=== PATIENT | male | born 1945 | race Caucasian/White ===

== ENCOUNTER 2017-04-30 15:44 | Emergency (ER) | payer OTHER ==
[~2017-04-30] VITALS: Ht 165.1 cm; Wt 83.1 kg
[2017-04-30 15:47] VITALS: TEMP 36.8; Ht 165.1 cm; Wt 83.1 kg
--- NOTE | 2017-04-30 16:13 | EMERGENCY ROOM VISIT NOTE ---
History Report prepared by Ilana: Wesley Gutierres Under the Supervision of: Dr. He Galdamez M.D. First contact with patient: 15:52 Chief Complaint: HYPERTENSION Stated Complaint: ELEVATED BP, HEADACHE History of Present Illness The patient is a 72 year old male with a history of hypertension who presents to the Emergency Room with complaints of worsening hypertension over the past 2 months. [facility], which he was diagnosed with 10 to 15 years ago. The patient says that he most recently had his medication changed 2 months ago, as he was on Lisinopril, Atenolol, and Chlorthalidone, but was taken off the Chlorthalidone due to having a systolic blood pressure in the 80s. The patient also had his Lisinopril decreased from 40 mg to 20 mg at that time. He states that ever since those changes, he has noticed his blood pressure slowly creeping back up. The patient notes that he had a systolic blood pressure in the 190s yesterday, and over 200 today. He adds that he has had a bit of a constant headache over his sinuses bilaterally over the past week, which he rates as a 4 or 5 out of 10 in severity. The patient denies any chest pain, shortness of breath, blurry vision, congestion, or swelling. He says that he has been taking Ibuprofen, which has been helping the headache. He last took 2 this morning. The patient notes no history of heart attacks or strokes. Source of History: patient Onset: Over past 2 months Position: other (global) Symptom Intensity: 200s systolic Quality: other (hypertension) Timing: worsening Associated Symptoms: + headache, No chest pain, No SOB Note: Associated symptom: Denies blurry vision, congestion, or swelling. Review of Systems See HPI for pertinent positives & negatives. A total of 10 systems reviewed and were otherwise negative. Past Medical & Surgical Medical Problems: (1) HTN (hypertension) Family History Family history omitted secondary to patient's advanced age. Social History Smoking Status: Former Smoker Smokeless Tobacco Use: No Drug Use: none Marital Status: Housing Status: lives with family Physical Exam Vital Signs Date Time Temp Pulse Resp B/P (MAP) Pulse Ox O2 Delivery O2 Flow Rate FiO2 04/30/17 18:29 55 20 167/89 97 04/30/17 17:52 56 18 172/85 95 Room Air 04/30/17 16:24 60 04/30/17 15:47 36.8 64 20 203/86 96 Room Air Physical Exam GENERAL: Patient is in no acute distress. HEENT: No acute trauma, normocephalic atraumatic, mucous membranes moist, no nasal congestion, no scleral icterus. NECK: No stridor, no adenopathy, no meningismus, trachea is midline. LUNGS: Clear to auscultation bilaterally, no wheeze, no rhonchi, breath sounds equal. HEART: Without murmurs gallops or rubs, regular rate and rhythm. ABDOMEN: Soft, nontender, bowel sounds positive, no hernias, no peritonitis. EXTREMITIES: No cyanosis or edema, full range of motion of all the joints without pain or difficulty, no signs for acute trauma. NEUROLOGIC: Oriented x 3, no acute motor or sensory deficits, no focal weakness. SKIN: No rash, no jaundice, no diaphoresis. Medical Decision & Procedures ER Provider Diagnostic Interpretation: CT results as stated below per my review and radiologist interpretation: CT HEAD WITHOUT CONTRAST (CT) CLINICAL HISTORY: headache, high blood pressure COMPARISON STUDY: No previous studies for comparison. TECHNIQUE: Axial CT of the brain is performed from the vertex to the skull base. IV contrast was not administered for this examination. A dose lowering technique was utilized adhering to the principles of ALARA. CT DOSE: 537.48 mGy.cm FINDINGS: No intra or extra-axial mass lesions are visualized. There is no CT evidence of acute cortical infarction. There is no evidence of midline shift. There is no acute hemorrhage. No calvarial fractures are visualized. There are minor white matter hypodensities likely on a small vessel basis. A hypodensity in the left basal ganglia region likely represents a prominent CSF space. There is no evidence of pathologic ventricular dilatation. There is no evidence of acute sinusitis IMPRESSION: No acute intracranial findings Electronically signed by: Miki Hoyos M.D 04/30/2017 4:46 PM Dictated Date/Time: 04/30/2017 4:44 PM Laboratory Results 04/30/17 16:28 04/30/17 16:28 Test 04/30/17 16:28 04/30/17 17:15 Red Blood Count 3.99 M/uL (4.7-6.1) Mean Corpuscular Volume 83.2 fL (80-100) Mean Corpuscular Hemoglobin 29.1 pg (25-34) Mean Corpuscular Hemoglobin Concent 34.9 g/dl (32-36) RDW Standard Deviation 40.1 fL (36.4-46.3) RDW Coefficient of Variation 13.1 % (11.5-14.5) Mean Platelet Volume 9.1 fL (7.4-10.4) Anion Gap 8.0 mmol/L (3-11) Est Creatinine Clear Calc Drug Dose 70.3 ml/min Estimated GFR () 91.3 Estimated GFR (Non- 78.8 BUN/Creatinine Ratio 12.7 (10-20) Calcium Level 8.6 mg/dl (8.5-10.1) Total Bilirubin 0.4 mg/dl (0.2-1) Aspartate Amino Transf (AST/SGOT) 18 U/L (15-37) Alanine Aminotransferase (ALT/SGPT) 29 U/L (12-78) Alkaline Phosphatase 78 U/L (45-117) Troponin I < 0.015 ng/ml (0-0.045) Total Protein 7.1 gm/dl (6.4-8.2) Albumin 3.7 gm/dl (3.4-5.0) Globulin 3.4 gm/dl (2.5-4.0) Albumin/Globulin Ratio 1.1 (0.9-2) Thyroid Stimulating Hormone (TSH) 2.950 uIu/ml (0.300-4.500) Urine Color YELLOW Urine Appearance CLEAR (CLEAR) Urine pH 5.5 (4.5-7.5) Urine Specific Roslyn 1.017 (1.000-1.030) Urine Protein NEG (NEG) Urine Glucose (UA) NEG (NEG) Urine Ketones NEG (NEG) Urine Occult Blood NEG (NEG) Urine Nitrite NEG (NEG) Urine Bilirubin NEG (NEG) Urine Urobilinogen NEG (NEG) Urine Leukocyte Esterase NEG (NEG) Laboratory results reviewed by me. Urine dip: Trace protein and trace blood. Medications Administered Medications (Trade) Dose Ordered Sig/Natalie Route Start Time Stop Time Status Last Admin Dose Admin Lisinopril (Zestril Tab) 20 mg NOW STAT PO 04/30/17 17:15 04/30/17 17:16 DC 04/30/17 17:54 20 MG ECG Per My Interpretation Indication: other (hypertension) Rate (beats per minute): 56 Rhythm: sinus bradycardia Findings: other (no ST elevation, no PVCs) ED Course 1555: The medical student, Vanessa Carter, evaluated the patient. 1614: The patient was evaluated in room C9. A complete history and physical exam was performed. 1715: Zestril Tab 20 mg PO. 1736: Reevaluated the patient and he is resting comfortably. Discussed results and discharge instructions: he verbalized understanding and agreement. The patient is ready for discharge. Medical Decision Differential diagnosis includes but is not limited to uncontrolled hypertension , renal failure, electrolyte imbalance, cardiac ischemia, intracranial bleeding , infection. There is no leukocytosis or concerning anemia. No significant electrolyte abnormality, kidney failure or hepatitis. EKG shows a sinus bradycardia no acute ischemia. Cardiac enzyme testing 1 is not consistent with acute cardiac injury. Urinalysis does not show infection. Brain CT shows no acute bleed or mass-effect. The patient appears to be in a euthyroid state. On exam, there were no focal neurologic deficits. The patient's blood pressure began to trend down on its own. He was given a 20 mg dose of oral lisinopril. The patient is being discharged to increase his lisinopril dosing back to the 40 mg that he had been on 2 months ago. He is to keep all his other medications the same. The patient will follow with his doctors office and return here if worsening. Medication Reconcilliation Current Medication List: was personally reviewed by me Blood Pressure Screening Patient's blood pressure: Elevated blood pressure Blood pressure disposition: Referred to PCP Impression Primary Impression: HTN (hypertension) Scribe Attestation The scribe's documentation has been prepared under my direction and personally reviewed by me in its entirety. I confirm that the note above accurately reflects all work, treatment, procedures, and medical decision making performed by me. Departure Information Dispostion Home / Self-Care Referrals Dionicio Zavala M.D. (PCP) Patient Instructions My [facility] Additional Instructions increase lisinopril back to 40 mg daily keep a watch on your blood pressure return for worsening symptoms or persistently high blood pressures see your doctor next week for a recheck lab testing today was all ok
[2017-04-30 16:42] LABS: HEMATOCRIT 33.2 % (42-52); HEMOGLOBIN 11.6 g/dL (14.0-18.0); MEAN CELL VOLUME 83.2 fL (80-100); MEAN CORPUSCULAR HEMOGLOBIN 29.1 pg (25-34); MEAN CORPUSCULAR HGB CONC 34.9 g/dl (32-36); MEAN PLATELET VOLUME 9.1 fL (7.4-10.4); PLATELET COUNT 214 K/uL (130-400); RED CELL DISTRIBUTION WIDTH CV 13.1 % (11.5-14.5); RED CELL DISTRIBUTION WIDTH SD 40.1 fL (36.4-46.3); WHITE BLOOD COUNT 5.49 K/uL (4.8-10.8)
--- NOTE | 2017-04-30 16:47 | DIAGNOSTIC IMAGING REPORT ---
CT HEAD WITHOUT CONTRAST (CT) CLINICAL HISTORY: headache, high blood pressure COMPARISON STUDY: No previous studies for comparison. TECHNIQUE: Axial CT of the brain is performed from the vertex to the skull base. IV contrast was not administered for this examination. A dose lowering technique was utilized adhering to the principles of ALARA. CT DOSE: 537.48 mGy.cm FINDINGS: No intra or extra-axial mass lesions are visualized. There is no CT evidence of acute cortical infarction. There is no evidence of midline shift. There is no acute hemorrhage. No calvarial fractures are visualized. There are minor white matter hypodensities likely on a small vessel basis. A hypodensity in the left basal ganglia region likely represents a prominent CSF space. There is no evidence of pathologic ventricular dilatation. There is no evidence of acute sinusitis IMPRESSION: No acute intracranial findings Electronically signed by: Miki Hoyos M.D. 04/30/2017 4:46 PM Dictated Date/Time: 04/30/2017 4:44 PM
[2017-04-30 17:00] LABS: ALBUMIN 3.7 gm/dl (3.4-5.0); ALT/SGPT 29 U/L (12-78); BLOOD UREA NITROGEN 12 mg/dl (7-18); CALCIUM 8.6 mg/dl (8.5-10.1); CARBON DIOXIDE 25 mmol/L (21-32); CREATININE 0.97 mg/dl (0.60-1.40); GLUCOSE 102 mg/dl (70-99); POTASSIUM 3.8 mmol/L (3.5-5.1); SODIUM 135 mmol/L (136-145)
[2017-04-30 17:11] LABS: ALKALINE PHOSPHATASE 78 U/L (45-117); AST/SGOT 18 U/L (15-37); TOTAL PROTEIN 7.1 gm/dl (6.4-8.2)
[2017-04-30] MEDS ORDERED: LISINOPRIL 20 MG TAB PO STA (17:15)
[2017-04-30 18:29] VITALS: BP 167/89; PULSE 55; O2SAT 97
== END 2017-04-30 18:31 | disposition home or self-care (01) ==
LOC: C.EDB 15:45 → C.EDC 18:31
DX: I10 Essential (primary) hypertension (principal); R51 Headache; Z87.891 Personal history of nicotine dependence

== ENCOUNTER 2017-05-03 13:39 | Emergency (ER) | payer OTHER ==
[~2017-05-03] VITALS: Ht 165.1 cm; Wt 82.7 kg
[2017-05-03 13:53] VITALS: TEMP 36.7; Ht 165.1 cm; Wt 82.7 kg
[2017-05-03] MEDS ORDERED: LISI40TA PO (14:27)
[2017-05-03] MEDS ORDERED: PRLSR20 PO (14:27)
[2017-05-03] MEDS ORDERED: SYN75 PO (14:27)
[2017-05-03] MEDS ORDERED: ROSU20TA PO (14:27)
[2017-05-03] MEDS ORDERED: TNR50 PO (14:27)
[2017-05-03 14:59] LABS: BASO % 0.2 %; BASO ABS # 0.01 K/uL (0-0.2); EOS ABS # 0.05 K/uL (0-0.5); HEMOGLOBIN 11.3 g/dL (14.0-18.0); LYMPH % 26.4 %; LYMPH ABS # 1.32 K/uL (1.2-3.4); MEAN CORPUSCULAR HEMOGLOBIN 28.8 pg (25-34); MEAN CORPUSCULAR HGB CONC 34.2 g/dl (32-36); MONO % 9.8 %; MONO ABS # 0.49 K/uL (0.11-0.59); NEUT % 62.6 %; NEUT ABS # 3.13 K/uL (1.4-6.5); PLATELET COUNT 196 K/uL (130-400); RED CELL DISTRIBUTION WIDTH CV 13.1 % (11.5-14.5)
[2017-05-03 15:24] VITALS: BP 160/83; PULSE 51; O2SAT 98
[2017-05-03 15:36] LABS: CALCIUM 8.9 mg/dl (8.5-10.1); CREATININE 0.89 mg/dl (0.60-1.40)
--- NOTE | 2017-05-03 20:11 | EMERGENCY ROOM VISIT NOTE ---
History Report prepared by Ilana: Kadeem Wood Under the Supervision of: Dr. Hemant Gracia M.D. First contact with patient: 14:07 Chief Complaint: HYPERTENSION Stated Complaint: HIGH BLOOD PRESSURE History of Present Illness The patient is a 72 year old male who presents to the Emergency Room with complaints of worsening hypertension that the patient has been dealing with for the past 2 months. The patient states that he was here on Wednesday, 3 days ago for the same complaints. He notes that this morning his blood pressures were normal and in the the 130's, before rising into the 220's systolically around 1200, 2 hours ago. The patient states that his primary care physician raised his Lisinopril dosage from 20 mg to 40 mg after his visit on Wednesday. He denies any chest pain and shortness of breath. His only complaint is "pressure in his face." Source of History: patient Position: head (face) Symptom Intensity: BP of 220's systolically. Quality: pressure Timing: worsening Associated Symptoms: No chest pain, No SOB Note: Patient complains of systolic blood pressure into the 220's. Review of Systems See HPI for pertinent positives & negatives. A total of 10 systems reviewed and were otherwise negative. Past Medical & Surgical Medical Problems: (1) HTN (hypertension) Old medical records were reviewed. Nurse's notes were reviewed and I agree with. Family History Omitted secondary to age. Social History Smoking Status: Former Smoker Drug Use: none Marital Status: Housing Status: lives with family Current/Historical Medications Scheduled Atenolol (Atenolol), 50 MG PO DAILY Levothyroxine Sodium (Synthroid), 75 MCG PO DAILY Lisinopril (Prinivil), 40 MG PO DAILY Omeprazole (Prilosec), 20 MG PO DAILY Rosuvastatin Calcium (Crestor), 20 MG PO DAILY Allergies Coded Allergies: Penicillins (Unverified Allergy, Unknown, rash, 05/03/17) Physical Exam Vital Signs Date Time Temp Pulse Resp B/P (MAP) Pulse Ox O2 Delivery O2 Flow Rate FiO2 05/03/17 15:24 51 12 160/83 98 Room Air 05/03/17 14:44 56 05/03/17 13:53 36.7 115 18 204/81 100 Room Air Physical Exam General: Non-ill appearing older male in no acute distress. HEENT: Normal cephalic atraumatic. Pupils are equal round and reactive to light. Extraocular movements are intact. Oropharynx is pink with moist mucous membranes. No swelling of the mouth lips or tongue. Neck: Supple with a midline trachea. No meningeal signs or stiffness, no JVD or bruits. No Stridor. Chest: Clear to auscultation bilaterally. No wheezes or rhonchi. No increased work of breathing. Heart: regular rate and rhythm. Abdomen: Soft nontender, nondistended without rebound guarding or rigidity. Extremities: No cyanosis clubbing or edema. No calf tenderness or assymetry Spine/Back. Non tender to palpation. No CVA tenderness Skin: Good turgor without rashes. Neurologic exam: Cranial nerves two through 12 are intact. Motor and sensation are intact and symmetrical throughout. Medical Decision & Procedures Laboratory Results 05/03/17 14:45 Red Blood Count 3.93, Mean Corpuscular Volume 84.0, Mean Corpuscular Hemoglobin 28.8, Mean Corpuscular Hemoglobin Concent 34.2, Mean Platelet Volume 9.0, Neutrophils (%) (Auto) 62.6, Lymphocytes (%) (Auto) 26.4, Monocytes (%) (Auto) 9.8, Eosinophils (%) (Auto) 1.0, Basophils (%) (Auto) 0.2, Neutrophils # (Auto) 3.13, Lymphocytes # (Auto) 1.32, Monocytes # (Auto) 0.49, Eosinophils # (Auto) 0.05, Basophils # (Auto) 0.01 05/03/17 14:45 Test 05/03/17 14:45 05/03/17 15:01 White Blood Count 5.00 K/uL (4.8-10.8) Red Blood Count 3.93 M/uL (4.7-6.1) Hemoglobin 11.3 g/dL (14.0-18.0) Hematocrit 33.0 % (42-52) Mean Corpuscular Volume 84.0 fL (80-100) Mean Corpuscular Hemoglobin 28.8 pg (25-34) Mean Corpuscular Hemoglobin Concent 34.2 g/dl (32-36) Platelet Count 196 K/uL (130-400) Mean Platelet Volume 9.0 fL (7.4-10.4) Neutrophils (%) (Auto) 62.6 % Lymphocytes (%) (Auto) 26.4 % Monocytes (%) (Auto) 9.8 % Eosinophils (%) (Auto) 1.0 % Basophils (%) (Auto) 0.2 % Neutrophils # (Auto) 3.13 K/uL (1.4-6.5) Lymphocytes # (Auto) 1.32 K/uL (1.2-3.4) Monocytes # (Auto) 0.49 K/uL (0.11-0.59) Eosinophils # (Auto) 0.05 K/uL (0-0.5) Basophils # (Auto) 0.01 K/uL (0-0.2) RDW Standard Deviation 40.0 fL (36.4-46.3) RDW Coefficient of Variation 13.1 % (11.5-14.5) Immature Granulocyte % (Auto) 0.0 % Immature Granulocyte # (Auto) 0.00 K/uL (0.00-0.02) Anion Gap 10.0 mmol/L (3-11) Est Creatinine Clear Calc Drug Dose 76.4 ml/min Estimated GFR () 100.4 Estimated GFR (Non- 86.6 BUN/Creatinine Ratio 11.1 (10-20) Calcium Level 8.9 mg/dl (8.5-10.1) Bedside Troponin I < 0.030 ng/ml (0-0.045) Laboratory studies as stated above per my review. ECG Per My Interpretation Indication: other (HTN) Rate (beats per minute): 51 Rhythm: sinus bradycardia Findings: nonspecific-ST abn, other (No STD/ALETHEA) Comparison ECG Date: 04/30/2017 Change: no significant change ED Course 1408: Past medical records reviewed. The patient was evaluated in room B12B, and a complete history and physical examination were performed. 1513: I checked on the patient at this time, he is resting comfortably. 1538: Upon reevaluation, the patient is resting in bed. I discussed the results and treatment plan with him. He verbalized agreement of the treatment plan. The patient was discharged home. Medical Decision Differential Diagnosis includes; hypertension, hypertensive crisis, infection, cardiac disease, electrolyte or metabolic abnormality. This patient comes in as described above. His blood pressure spikes this afternoon. It seemed to go higher when he rechecked it. it was okay this morning and he was seen here 3 days ago for the same issue and his lisinopril was doubled. He has been taking his meds. He is asymptomatic otherwise. he has no numbness or weakness, headache ,chest pain, back pain, shortness of breath or abdominal pain. He has no evidence to suggest organ damage. EKG shows no acute ischemic changes or ectopy with his heart rate in the 50s. He has no acute electrolyte or metabolic abnormalities. Without treatment his blood pressure came down in the 160s over 80s. I do think he can be discharged. he is happy with this plan and I do think he should have close follow-up with his regular doctor. At this point, his blood pressure medication was readjusted 3 days ago and I think is too early to make another change. I encouraged him to return to the ER if any new problems or concerns. Medication Reconcilliation Current Medication List: was personally reviewed by me Blood Pressure Screening Patient's blood pressure: Elevated blood pressure Blood pressure disposition: Referred to PCP Impression Primary Impression: HTN (hypertension) Scribe Attestation The scribe's documentation has been prepared under my direction and personally reviewed by me in its entirety. I confirm that the note above accurately reflects all work, treatment, procedures, and medical decision making performed by me. Departure Information Dispostion Home / Self-Care Referrals Dionicio Zavala M.D. (PCP) Forms HOME CARE DOCUMENTATION FORM, IMPORTANT VISIT INFORMATION, WORK / SCHOOL INSTRUCTIONS Patient Instructions My [facility] Additional Instructions Rest. Drink plenty of fluids. Check your blood pressure frequently and log it. Follow-up with your doctor later this week for blood pressure recheck Return sooner if: Worsening of symptoms, chest pain, shortness of breath, fever or chills, any new problems or concerns
== END 2017-05-03 16:02 | disposition home or self-care (01) ==
LOC: C.EDB 13:41
DX: I10 Essential (primary) hypertension (principal); Z87.891 Personal history of nicotine dependence; Z79.899 Other long term (current) drug therapy; Z88.0 Allergy status to penicillin